=== PATIENT | female | born 1985 | race Caucasian/White ===

== ENCOUNTER → 2019-05-13 | Outpatient (CLI) | payer OTHER | END | disposition home or self-care (01) | LOC: LABWHC1 08:34 | PROVIDERS: ATTEND Orthopaedic Surgery | DX: M79.642 Pain in left hand (principal); S62.355D Nondisplaced fracture of shaft of fourth metacarpal bone, left hand, subsequent encounter for fracture with routine healing; S63.695D Other sprain of left ring finger, subsequent encounter; E55.9 Vitamin D deficiency, unspecified | CPT/HCPCS: 36415; 82306 ==